=== PATIENT | male | born 1985 | race Caucasian/White ===

== ENCOUNTER 2020-01-17 17:51 | Emergency (ER) | payer OTHER ==
[~2020-01-17] VITALS: Ht 182.9 cm; Wt 77.1 kg
--- NOTE | 2020-01-17 18:11 | NUR ---
Patient discharged to home in stable condition. Written and verbal after care instructions given. Patient verbalizes understanding of instructions. pt walks in steady gait.Stressed follow up or return to ER for worsening s/s.
== END 2020-01-17 18:31 | disposition home or self-care (01) ==
LOC: ER 17:57
DX: R20.2 Paresthesia of skin (principal)
CPT/HCPCS: A4663